=== PATIENT | male | born 1970 | race Hispanic/Latino ===

== ENCOUNTER 2018-07-09 12:20 | Inpatient (IN) ==
[2018-07-09] MEDS ORDERED: ASPIRIN 81 MG (BABY) CHEWABLE TABLET PO ONE (12:25)
[2018-07-09] MEDS ORDERED: Sodium Chloride 0.9% 1,000 ML PRIMARY IV ONE ×3 (12:25→22:35)
[2018-07-09] MEDS ORDERED: PANTOPRAZOLE IV 40 MG VIAL IVP ONE ×2 (12:25→15:39)
[2018-07-09] MEDS ORDERED: ONDANSETRON 4 MG/2 ML VIAL IVP ONE (12:25)
[2018-07-09] MEDS ORDERED: MORPHINE SULFATE 2 MG/1 ML IVP ONE (12:25)
--- NOTE | 2018-07-09 12:30 | EKG ---
[address] [address] Measurements Intervals [place] Rate: 113 P: 21 OR: 160 QRS: 18 QRSD: 106 T: 0 QT: 348 QTc: 415 Interpretive Statements SINUS TACHYCARDIA ABNORMAL RHYTHM ECG No previous ECG available for comparison Electronically Signed On 07-09-18 12:43:49 MST by Jonah Acevedo [id number]
--- NOTE | 2018-07-09 12:36 | PDOC ---
General Adult HPI - General Chief Complaint: Chest Pain Stated Complaint: LEFT CHEST/ABDOMEN PAIN STARTING TODAY Date Seen by Provider: 07/09/18 Time Seen by Provider: 12:20 Source: POSITIVE: Patient Exam Limitations: POSITIVE: No limitations Nurse's Notes Reviewed & Considered: Yes - History of Present Illness Initial Comment: The patient is a 44-year-old male who presents to the emergency department with left-sided chest and abdominal pain. He reports onset of pain in his left upper chest this morning. This pain is sharp and worsened with movement and taking deep breath. The pain now radiates through the left side of his chest through the left upper and mid abdomen. He has significant pain with movement. He also had an episode of emesis earlier this morning. He denies history of heart problems. He is unsure about history of high blood pressure or diabetes. He does not currently take any medications. The patient is primarily Czech speaking however does speak some Mauritanian limiting assessment. The patient does report drinking regularly and drank a sixpack last night. Have you received a tetanus shot in the past 10 years?: Unknown - Patient Home Medications Home Medications: Home Medications NK 07/09/18 - Patient Allergies Allergies/Adverse Reactions: Allergies 3 Allergy/AdvReac Type Severity Reaction Status Date / Time No Known Allergies Allergy Verified 07/09/18 12:26 Past Medical History Past Medical History Reviewed: Other (please comment) (Denies significant medical history and does not currently take any medications) ROS - Limitations ROS Limitations: Language Barrier Constitution: DENIES: Fever Cardiovascular: REPORTS: Chest Pain. DENIES: Edema Respiratory: REPORTS: Hurts To Breathe. DENIES: Cough Non Productive, Cough Productive Neurological: REPORTS: Denies Neuro Symptoms Gastrointestinal: REPORTS: Abdominal Pain, Nausea, Vomitting. DENIES: Diarrhea , Black Stools, Bloody Stools Musculoskeletal: DENIES: Lower Extremity Swelling Eyes: REPORTS: Denies Symptoms ENT: REPORTS: Denies Symptoms Skin: DENIES: Rash General Adult Exam - General Appearance General Appearance: POSITIVE: Alert, Cooperative, No Acute Distress - HEENT HEENT: POSITIVE: Head Inspection Nml, Eyes Inspection Nml, Ears Inspection Nml, Nose Inspection Nml, Pharynx Inspect. Nml - Neck Neck: POSITIVE: Normal Inspection. NEGATIVE: Lymphadenopathy - Respiratory Respiratory: POSITIVE: No Respiratory Distress, Breath Sounds Normal - Cardiovascular Cardiovascular: POSITIVE: Regular Rate & Rhythm, No Murmur Peripheral Pulses: Dorsalis-pedis (R): 2+, Dorsalis-pedis (L): 2+ - Abdomen Abdomen: Soft: (All Quadrants), Distention: (All Quadrants) - Skin Skin: POSITIVE: Normal Color, No Rash - Extremities Extremity: Normal ROM: (All Extremities), Normal Inspection: (All Extremities) - Neurological / Psychological Neurological: POSITIVE: Oriented X3, Motor Normal, Sensation Normal General Adult Progress - Results Reviewed by me Xrays/CTs/US Reviewed by me: Yes Discussed with Radiologist: Yes Radiology Findings: CTA of the chest shows no evidence of PE. CT of the abdomen and pelvis shows a 10 x 6 cm cyst in the tail the pancreas with a smaller 10 mm cyst in the head of the pancreas, there is some inflammatory change around the pancreas consistent with pancreatitis, there is also inflammatory change and/or fluid around the body of the stomach as well as small amount of fluid around the liver. Lab Results Reviewed by Me: Yes Lab Results:: Laboratory Results 3 07/09/18 07/09/18 07/09/18 12:25 12:25 12:26 WBC 16.53 H RBC 5.00 Hgb 16.9 Hct 49.6 MCV 99.2 H MCH 33.8 H MCHC 34.1 RDW Std Deviation 43.4 RDW Coeff of [place] 12.1 Plt Count 185 MPV 10.6 Immature Gran % (Auto) 0.2 Neut % (Auto) 82.1 H Lymph % (Auto) 10.6 [place] % (Auto) 6.8 Eos % (Auto) 0.1 Baso % (Auto) 0.2 Immature Gran # (Auto) 0.04 Neut # (Auto) 13.56 Lymph # (Auto) 1.76 [place] # (Auto) 1.13 H Eos # (Auto) 0.01 Baso # (Auto) 0.03 WBC Morphology Comment Normal morphology Plt Morphology Comment Normal morphology RBC Morph Comment Normal morphology D-Dimer 0.79 H VBG pH VBG pCO2 VBG HCO3 VBG Base Excess Sodium Potassium Chloride Carbon Dioxide Anion Gap BUN Creatinine Estimated GFR BUN/Creatinine Ratio Glucose Mean Blood Glucose Hemoglobin A1c Calculated Osmolality Lactic Acid Calcium Magnesium Total Bilirubin AST ALT Alkaline Phosphatase Lactate Dehydrogenase CK-MB (CK-2) Troponin I C-Reactive Protein Total Protein Albumin Globulin Albumin/Globulin Ratio Amylase Lipase Ur Collection Type Clean catch urine Urine Color Yellow Urine Clarity Clear Urine pH 5.0 Ur Specific [place] 1.025 U Specif Grav (Refrac) Urine Protein 30 A Urine Glucose (UA) 500 Urine Ketones >=160 Urine Occult Blood Negative Urine Nitrate Negative Urine Bilirubin Small Urine Urobilinogen 0.2 Ur Leukocyte Esterase Negative Urine RBC None Urine WBC None Ur Squamous Epith Cells Rare Ur Renal Epithelial Cell None Urine Crystals None Urine Bacteria None Urine Casts None Urine Mucus Rare Urine Trichomonas None Urine Yeast None Ur Culture Indicated? Culture not set Urine Opiates Screen Ur Buprenorphine Ur Oxycodone Screen Urine Methadone Screen Ur Propoxyphene Screen Barbiturate Screen U Tricyclic Antidepress Phencyclidine Screen Amphetamines Screen U Methamphetamines Scrn Benzodiazepines Screen Cocaine Screen U Marijuana (THC) Screen Serum Alcohol 3 07/09/18 07/09/18 07/09/18 12:30 12:30 12:30 WBC RBC Hgb Hct MCV MCH MCHC RDW Std Deviation RDW Coeff of [place] Plt Count MPV Immature Gran % (Auto) Neut % (Auto) Lymph % (Auto) [place] % (Auto) Eos % (Auto) Baso % (Auto) Immature Gran # (Auto) Neut # (Auto) Lymph # (Auto) [place] # (Auto) Eos # (Auto) Baso # (Auto) WBC Morphology Comment Plt Morphology Comment RBC Morph Comment D-Dimer VBG pH VBG pCO2 VBG HCO3 VBG Base Excess Sodium 136 Potassium 3.6 L Chloride 100 Carbon Dioxide 20 L Anion Gap 16 BUN 7 Creatinine 0.4 L Estimated GFR > 60 BUN/Creatinine Ratio 17.50 Glucose 263 H Mean Blood Glucose Hemoglobin A1c Calculated Osmolality 288.0 Lactic Acid Calcium 8.9 Magnesium 1.8 Total Bilirubin 1.8 H AST 37 ALT 43 Alkaline Phosphatase 129 H Lactate Dehydrogenase CK-MB (CK-2) 0.36 Troponin I < 0.012 C-Reactive Protein 5.2 H Total Protein 8.9 H Albumin 4.5 Globulin 4.4 H Albumin/Globulin Ratio 1.00 L Amylase 135 H Lipase 1091 H* Ur Collection Type Urine Color Urine Clarity Urine pH Ur Specific [place] U Specif Grav (Refrac) Urine Protein Urine Glucose (UA) Urine Ketones Urine Occult Blood Urine Nitrate Urine Bilirubin Urine Urobilinogen Ur Leukocyte Esterase Urine RBC Urine WBC Ur Squamous Epith Cells Ur Renal Epithelial Cell Urine Crystals Urine Bacteria Urine Casts Urine Mucus Urine Trichomonas Urine Yeast Ur Culture Indicated? Urine Opiates Screen Ur Buprenorphine Ur Oxycodone Screen Urine Methadone Screen Ur Propoxyphene Screen Barbiturate Screen U Tricyclic Antidepress Phencyclidine Screen Amphetamines Screen U Methamphetamines Scrn Benzodiazepines Screen Cocaine Screen U Marijuana (THC) Screen Serum Alcohol 11 H 3 07/09/18 07/09/18 07/09/18 12:54 13:00 13:00 WBC RBC Hgb Hct MCV MCH MCHC RDW Std Deviation RDW Coeff of [place] Plt Count MPV Immature Gran % (Auto) Neut % (Auto) Lymph % (Auto) [place] % (Auto) Eos % (Auto) Baso % (Auto) Immature Gran # (Auto) Neut # (Auto) Lymph # (Auto) [place] # (Auto) Eos # (Auto) Baso # (Auto) WBC Morphology Comment Plt Morphology Comment RBC Morph Comment D-Dimer VBG pH 7.40 VBG pCO2 26 L VBG HCO3 16 L VBG Base Excess -8 L Sodium Potassium Chloride Carbon Dioxide Anion Gap BUN Creatinine Estimated GFR BUN/Creatinine Ratio Glucose Mean Blood Glucose 283.963 Hemoglobin A1c 11.11 H Calculated Osmolality Lactic Acid Calcium Magnesium Total Bilirubin AST ALT Alkaline Phosphatase Lactate Dehydrogenase 448 CK-MB (CK-2) Troponin I C-Reactive Protein Total Protein Albumin Globulin Albumin/Globulin Ratio Amylase Lipase Ur Collection Type Urine Color Urine Clarity Urine pH Ur Specific [place] U Specif Grav (Refrac) Urine Protein Urine Glucose (UA) Urine Ketones Urine Occult Blood Urine Nitrate Urine Bilirubin Urine Urobilinogen Ur Leukocyte Esterase Urine RBC Urine WBC Ur Squamous Epith Cells Ur Renal Epithelial Cell Urine Crystals Urine Bacteria Urine Casts Urine Mucus Urine Trichomonas Urine Yeast Ur Culture Indicated? Urine Opiates Screen Ur Buprenorphine Ur Oxycodone Screen Urine Methadone Screen Ur Propoxyphene Screen Barbiturate Screen U Tricyclic Antidepress Phencyclidine Screen Amphetamines Screen U Methamphetamines Scrn Benzodiazepines Screen Cocaine Screen U Marijuana (THC) Screen Serum Alcohol 3 07/09/18 07/09/18 16:06 17:06 WBC RBC Hgb Hct MCV MCH MCHC RDW Std Deviation RDW Coeff of [place]o Plt Count MPV Immature Gran % (Auto) Neut % (Auto) Lymph % (Auto) [place] % (Auto) Eos % (Auto) Baso % (Auto) Immature Gran # (Auto) Neut # (Auto) Lymph # (Auto) [place] # (Auto) Eos # (Auto) Baso # (Auto) WBC Morphology Comment Plt Morphology Comment RBC Morph Comment D-Dimer VBG pH VBG pCO2 VBG HCO3 VBG Base Excess Sodium Potassium Chloride Carbon Dioxide Anion Gap BUN Creatinine Estimated GFR BUN/Creatinine Ratio Glucose Mean Blood Glucose Hemoglobin A1c Calculated Osmolality Lactic Acid 0.8 Calcium Magnesium Total Bilirubin AST ALT Alkaline Phosphatase Lactate Dehydrogenase CK-MB (CK-2) Troponin I C-Reactive Protein Total Protein Albumin Globulin Albumin/Globulin Ratio Amylase Lipase Ur Collection Type Clean catch urine Urine Color Urine Clarity Urine pH Ur Specific [place] U Specif Grav (Refrac) 1.025 Urine Protein Urine Glucose (UA) Urine Ketones Urine Occult Blood Urine Nitrate Urine Bilirubin Urine Urobilinogen Ur Leukocyte Esterase Urine RBC Urine WBC Ur Squamous Epith Cells Ur Renal Epithelial Cell Urine Crystals Urine Bacteria Urine Casts Urine Mucus Urine Trichomonas Urine Yeast Ur Culture Indicated? Urine Opiates Screen Positive H Ur Buprenorphine Negative Ur Oxycodone Screen Negative Urine Methadone Screen Negative Ur Propoxyphene Screen Negative Barbiturate Screen Negative U Tricyclic Antidepress Negative Phencyclidine Screen Negative Amphetamines Screen Negative U Methamphetamines Scrn Negative Benzodiazepines Screen Negative Cocaine Screen Negative U Marijuana (THC) Screen Negative Serum Alcohol CBC and BMP: 07/10/18 05:00 07/10/18 05:00 EKG Interpreted/Reviewed By Me:: Yes EKG Interpretation:: POSITIVE: Other (EKG shows sinus tachycardia with a rate of 113, no acute ST segment or T-wave changes.) - Patient's Progress MDM / ED Course: His initial EKG shows sinus tachycardia with a rate of 113, no acute ST segment or T-wave changes. The patient was given aspirin per chest pain protocol. He also appeared to be significantly uncomfortable and was given morphine and Zofran. Because of the left upper abdominal pain he was also given Protonix 40 mg IV. The patient had continued pain and his lipase was significantly elevated at 1000. He subsequent received Dilaudid 1 mg IV with significant pain relief. Chest x-ray showed hypoventilatory effort with possible atelectasis at the lung base and possible small right-sided pleural effusion. Blood work reveals an elevated white count of 16,000 with the CRP this elevated at 5. His lipase is 1000. D-dimer was also slightly elevated at 7.4. CT of the chest and CT scan of the abdomen and pelvis with IV contrast was ordered. The CT of the chest was negative for PE. CT the abdomen and pelvis shows inflammatory change around the pancreas as well as around the body of the stomach with a small amount of fluid around the liver, he also has a 10 x 6 cm cystic mass in the tail the pancreas as well as a 10 mm cyst in the head of the pancreas. The patient was discussed with Dr. Medina. He recommended likely referral to tertiary care for drainage and/or biopsy. The films were sent to the PACS system at [facility] and I did speak with the interventional radiologist there Dr. Cutler. He thought that the cyst most likely represented a pseudocyst and recommended that he be treated medically with consideration of drainage of the pseudocyst after maturity in 3-6 weeks. I subsequently had spoken with Dr. Polo. He recommended referral to a specialist in [place] Dr. Love. I did speak with Dr. Love and he also thought that this most likely represented a pseudocyst and recommended waiting 6 weeks for drainage and less the patient had clinical worsening. He thought it would be reasonable to treat the patient locally as a pancreatitis. If the patient improved he recommended outpatient follow-up. If the patient had worsening he recommended contacting their facility to discuss options. These findings and recommendations were discussed with the patient and he is in agreement with this plan. Dr. Garcia has agreed to admit the patient. - Consult Counseled: POSITIVE: Patient, RE: Lab Results, RE: Radiology Results, RE: DX, RE : Need for F/U Patient Care Time - Estimated PCT Patient Care Time (In Minutes): 55 Vital Signs - VS Reviewed Vital Signs Reviewed: Yes Discharge Clinical Impression: Hypokalemia, Cystic mass of pancreas Acute pancreatitis Qualifiers: Pancreatitis type: alcohol induced Acute pancreatitis complication: no infection or necrosis Qualified Code(s): K85.20 - Alcohol induced acute pancreatitis without necrosis or infection Discharge Disposition: Admit to Inpatient Condition: Fair Date Decision to Admit to Inpatient: 07/10/18 Time Decision to Admit to Inpatient: 17:30
[2018-07-09 12:40] LABS: BASOPHILS # (AUTO) 0.03 10*3/UL; BASOPHILS % (AUTO) 0.2 % (0-1); EOSINOPHILS # (AUTO) 0.01 10*3/UL; EOSINOPHILS % (AUTO) 0.1 % (0-8); Hematocrit [HCT] 49.6 % (42.0-52.0); Hemoglobin [HGB] 16.9 g/dL (14.0-18.0); LYMPHOCYTES # (AUTO) 1.76 10*3/uL; MEAN CORPUSCULAR HEMOGLOBIN 33.8 PG (27-31); MEAN CORPUSCULAR HGB CONC 34.1 g/dL (33-37); MEAN CORPUSCULAR VOLUME 99.2 FL (80-90); MEAN PLATELET VOLUME 10.6 FL (7.4-12.2); MONOCYTES # (AUTO) 1.13 10*3/UL (0.3-0.8); MONOCYTES % (AUTO) 6.8 % (5-15); NEUTROPHILS # (AUTO) 13.56 10*3/UL; NEUTROPHILS % (AUTO) 82.1 % (50-80)
[2018-07-09 12:54] LABS: BLOOD UREA NITROGEN 7 mg/dL (7-22); SERUM ALBUMIN 4.5 g/dL (3.5-4.8)
[2018-07-09 12:56] LABS: PLATELET MORPHOLOGY COMMENT NORMAL MORPHOLOGY (NORM); RBC MORPHOLOGY COMMENT NORMAL MORPHOLOGY (NORM); WBC MORPHOLOGY COMMENT NORMAL MORPHOLOGY (NORM)
[2018-07-09] MEDS ORDERED: HYDROmorphone 2 MG/1 ML IVP ONE (12:59)
[2018-07-09 13:04] LABS: LIPASE 1091 IU/L (23-300)
--- NOTE | 2018-07-09 13:37 | DI ---
EXAM: XR Chest, 1 View CLINICAL HISTORY: ITS.REASON Chest Pain Physician Notes: Tech Comments: TECHNIQUE: Frontal view of the chest. COMPARISON: No relevant prior studies available. FINDINGS: Lungs: Hypoventilatory lungs. Bibasilar lung atelectasis. Pleural space: Query Tiny right pleural effusion. No pneumothorax. Heart: Unremarkable. No cardiomegaly. Mediastinum: Unremarkable. Bones/joints: Unremarkable. IMPRESSION: Hypoventilatory lungs. Bibasilar lung atelectasis. Query Tiny right pleural effusion.
[2018-07-09 14:38] LABS: VENOUS PH 7.4 (7.32-7.42)
--- NOTE | 2018-07-09 15:27 | DI ---
EXAM: CT Angiography Chest With Intravenous Contrast CLINICAL HISTORY: ITS.REASON chest pain, elevated d-dimer Physician Notes: Tech Comments: TECHNIQUE: Axial computed tomographic angiography images of the chest with intravenous contrast using pulmonary embolism protocol. MIP reconstructed images were created and reviewed. Coronal and sagittal reformatted images were created and reviewed. COMPARISON: No relevant prior studies available. FINDINGS: Pulmonary arteries: No pulmonary embolism. Aorta: No acute findings. No thoracic aortic aneurysm. Lungs: Mild right middle lobe, lingular and bibasilar lung atelectasis/streaky opacities. Pleural space: Unremarkable. No significant effusion. No pneumothorax. Heart: Unremarkable. No cardiomegaly. No significant pericardial effusion. No evidence of RV dysfunction. Mediastinum: Small hiatal hernia. Bones/joints: Degenerative changes of the spine. No acute fracture. No dislocation. Soft tissues: Unremarkable. Lymph nodes: Unremarkable. No enlarged lymph nodes. Intraperitoneal space: Small ascites in the upper abdomen. Marked thickening of the gastric fundus. Stranding edema in the left upper abdomen. 5 cm cystic mass in the left upper abdomen, not fully imaged. IMPRESSION: 1. No pulmonary embolism. 2. Mild right middle lobe, lingular and bibasilar lung atelectasis/streaky opacities. 3. Small ascites in the upper abdomen. Marked thickening of the gastric fundus. Stranding edema in the left upper abdomen. 5 cm cystic mass in the left upper abdomen, not fully imaged.
--- NOTE | 2018-07-09 15:33 | EKG ---
Measurements Intervals [place] Rate: 119 P: 33 CO: 157 QRS: 14 QRSD: 102 T: 22 QT: 351 QTc: 422 Interpretive Statements SINUS TACHYCARDIA NONSPECIFIC T-WAVE ABNORMALITY ABNORMAL RHYTHM ECG Compared to ECG 07/09/2018 12:25:53 T-wave abnormality now present Electronically Signed On 07-10-18 08:20:54 MST by Kartik Larios MD [id number]
--- NOTE | 2018-07-09 15:35 | DI ---
EXAM: CT Abdomen and Pelvis With Intravenous Contrast CLINICAL HISTORY: ITS.REASON left sided abdominal pain Physician Notes: Tech Comments: TECHNIQUE: Axial computed tomography images of the abdomen and pelvis with intravenous contrast. COMPARISON: No relevant prior studies available. FINDINGS: Lung bases: Streaky opacities bilateral lower lobe. No mass. No consolidation. ABDOMEN: Liver: Unremarkable. No mass. Gallbladder and bile ducts: Distended gallbladder. No calcified stones. No ductal dilation. Pancreas: 6.0 x 10.4 x 7.1 cm cystic mass with rim enhancing wall at the pancreatic body and tail, likely pseudocyst. Cannot exclude neoplasm. Surrounding inflammatory changes. Follow-up. Heterogeneous pancreatic head and neck. 10 mm pancreatic head cystic lesion. No ductal dilation. Spleen: Unremarkable. No splenomegaly. Adrenals: Unremarkable. No mass. Kidneys and ureters: Unremarkable. No solid mass. No hydronephrosis. Stomach and bowel: Inflammatory changes left upper abdomen. Thickening at the splenic flexure of the colon likely reactive. Fluid or thickening at the gastric fundus. Colonic diverticulosis. No obstruction. PELVIS: Appendix: Normal appendix. Bladder: Unremarkable. No mass. Reproductive: Unremarkable as visualized. ABDOMEN and PELVIS: Intraperitoneal space: Free fluid upper abdomen and in the pelvis. No free air. Low Bones/joints: Degenerative changes of the spine. No acute fracture. No dislocation. Soft tissues: Small umbilical hernia containing ascites. Small bilateral fat-containing inguinal hernias. Vasculature: Varices. No abdominal aortic aneurysm. Lymph nodes: Unremarkable. No enlarged lymph nodes. IMPRESSION: 1. 6.0 x 10.4 x 7.1 cm cystic mass with rim enhancing wall at the pancreatic body and tail, likely pseudocyst, possibly infection/abscess. Cannot exclude neoplasm. Surrounding inflammatory changes, probably acute pancreatitis. 10 mm cystic lesion pancreatic head. Follow-up. 2. Inflammatory changes left upper abdomen. Thickening at the splenic flexure of the colon likely reactive. Fluid or thickening at the gastric fundus. 3. Distended gallbladder. 4. Colonic diverticulosis.
[2018-07-09 17:20] LABS: BILIRUBIN,URINE SMALL (NEG); CLARITY,URINE CLEAR (CLEAR); COLOR,URINE YELLOW (Y); GLUCOSE, URINE (UA) 500 mg/dL (NEG); OCCULT BLOOD,URINE NEGATIVE (NEG); PROTEIN,URINE 30 mg/dl (NEG); UROBILINOGEN,URINE 0.2 EU/dL (0.2)
[2018-07-09 17:22] LABS: SQUAMOUS EPITHELIAL CELL,UR RARE; URINE SAMPLE TYPE CLEAN CATCH URINE
[2018-07-09 17:23] LABS: AMPHETAMINE SCREEN NEGATIVE (NEG); CANNABINOID SCREEN,URINE NEGATIVE (NEG); COCAINE SCREEN NEGATIVE (NEG); METHADONE URINE SCREEN NEGATIVE (NEG); METHAMPHETAMINES SCREEN,URINE NEGATIVE (NEG); OPIATE SCREEN,URINE POSITIVE (NEG); URINE SAMPLE TYPE CLEAN CATCH URINE; URINE SPECIFIC GRAVITY - MAN 1.025
[2018-07-09] MEDS ORDERED: CALCIUM CARBONATE 500 MG (TUMS) CHEWABLE TABLET PO PRN (17:32)
[2018-07-09] MEDS ORDERED: ONDANSETRON 4 MG/2 ML VIAL IVP PRN (17:32)
[2018-07-09] MEDS ORDERED: D5-1/2NS + 20mEq KCL 1,000 ML PRIMARY IV SCH (17:32)
[2018-07-09] MEDS ORDERED: ACETAMINOPHEN 325 MG TABLET PO PRN (17:32)
[2018-07-09] MEDS ORDERED: LIDOCAINE W/ SODIUM BICARB 0.5 ML SYR SUBD PRN (17:32)
[2018-07-09] MEDS ORDERED: DOCUSATE 100 MG CAPSULE PO PRN (17:32)
[2018-07-09] MEDS: HYDROmorphone 2 MG/1 ML IVP PRN (17:54)
--- NOTE | 2018-07-09 18:17 | PDOC ---
HPI - History of Present Illness Date of Service: 07/09/18 Time of Service: 18:05 Chief Complaint: abdominal pain History of Present Illness: This is a 48 year old predominantly uruguayan speaking male with no prior past medical history that presents with sudden onset of epigastric pain that started today. The patient admits to drinking 6 bears per day on most days. No fever and no diarrhea. Did have nausea and vomiting. Pain medication in the emergency room did help a little. Nausea medicine helped some too. Has never had pancreatitis before. He has had alcohol withdrawal in the past but has never been hospitalized for this in the past. CT scan shows pancreatitis with a pseudocyst and a cystic mass in the pancreas. The patient states he has lost weight. He has not had any surgeries and still has his gallbladder. Past Medical History Medical History: 1. alcohol abuse Surgical History: no prior surgeries Pertinent Family History: Significant for diabetes in his father Past Social History: does not smoke, does drink 6 beers a day. works all over in the [employer] not . no children. Tobacco Use: Never Smoker In the Past 12 Months, Have Used or Abuse Any of the Following Substance: None Alcohol Use: Heavy Medication / Allergies Home Medications: Home Medications 3 Medication Instructions Recorded Confirmed Type NK 07/09/18 07/09/18 History Allergies/Adverse Reactions: Allergies 3 Allergy/AdvReac Type Severity Reaction Status Date / Time No Known Allergies Allergy Verified 07/09/18 12:26 Review of Systems - Review of Systems All Systems: Reviewed & No Additional Complaints Except as Stated (I did a 12 point review of systems and it was negative except for that in history of present illness and exceptions noted below.) - Constitutional Constitutional: REPORTS: Weight Loss - Respiratory Respiratory: REPORTS: Pleuritic Pain (along left side) - Gastrointestinal Gastrointestinal / Abdominal: REPORTS: Nausea, Vomiting, Abdominal Pain Exam - Vitals Vital Signs: Vital Signs Temperature 98.6 F Temperature Source Temporal Artery Scan Pulse Rate [Telemetry] 119 Pulse Rate 129 Respiratory Rate 22 Blood Pressure [Right Arm] 146/96 Blood Pressure 141/96 Pulse Ox 95 Oxygen Flow Rate 2 Oxygen Delivery Method Nasal Cannula Height 5 ft 9 in Weight 172 lb 1.6 oz - General General Appearance: No Acute Distress, Cooperative Additional General Exam Details: not toxic, appears ill - Head Head Exam: Normal Inspection, Normocephalic, Atraumatic - Eye Eye Exam: POSITIVE: No Scleral Icterus - ENT ENT Exam: POSITIVE: Mucous Membranes Dry - Neck Neck Exam: Normal Inspection, No Tenderness, No Lymphadenopathy, No Thyromegaly , JVP is not Raised - Respiratory Respiratory Exam: POSITIVE: Clear to Auscultation - Bilaterally, Breathing Non Labored, Normal to Percussion and Palpation - Cardiovascular Cardiovascular Exam: POSITIVE: No Murmur, No Clicks, No Gallops, No Rubs, Tachycardia, No JVD - GI/Abdominal GI/Abdominal Exam: POSITIVE: Normal Bowel Sounds, Non Distended, Soft Additional GI/Abdominal Exam Details: epigastric tenderness to palpation. - Rectal Rectal Exam: POSITIVE: Deferred - External Exam: POSITIVE: Deferred Exam: POSITIVE: Deferred - Extremities Extremities Exam: POSITIVE: No Clubbing Present, No Edema Present, No Cyanosis Present - Back Back Exam: POSITIVE: No CVA Tenderness - Neurological Neurological Exam: POSITIVE: Alert, Oriented x 3, No Facial Droop, Speech Intact / Clear, Moves All Extremities Equally - Psychiatric Psychiatric Exam: POSITIVE: Normal Affect, Normal Mood Results - Labs CBC and BMP: 07/09/18 12:25 07/09/18 12:30 Additional Lab Results: Laboratory Results 07/09/18 07/09/18 07/09/18 Range/Units 12:25 12:25 12:26 WBC 16.53 H (4.8-10.8) 10^3/uL RBC 5.00 (4.70-6.10) 10^6/uL Hgb 16.9 (14.0-18.0) g/dL Hct 49.6 (42.0-52.0) % MCV 99.2 H (80-90) FL MCH 33.8 H (27-31) PG MCHC 34.1 (33-37) g/dL RDW Std Deviation 43.4 (39-50) fL RDW Coeff of Haroldo 12.1 (11.5-14.5) % Plt Count 185 (140-350) 10*3/uL MPV 10.6 (7.4-12.2) FL Immature Gran % (Auto) 0.2 (0-5) % Neut % (Auto) 82.1 H (50-80) % Lymph % (Auto) 10.6 (10-50) % [place] % (Auto) 6.8 (5-15) % Eos % (Auto) 0.1 (0-8) % Baso % (Auto) 0.2 (0-1) % Immature Gran # (Auto) 0.04 10*3/UL Neut # (Auto) 13.56 10*3/UL Lymph # (Auto) 1.76 10*3/uL [place] # (Auto) 1.13 H (0.3-0.8) 10*3/UL Eos # (Auto) 0.01 10*3/UL Baso # (Auto) 0.03 10*3/UL WBC Morphology Comment Normal morphology (NORM) Plt Morphology Comment Normal morphology (NORM) RBC Morph Comment Normal morphology (NORM) D-Dimer 0.79 H (0.00-0.59) mg/L VBG pH (7.32-7.42) VBG pCO2 (45-55) mmHg VBG HCO3 (22-26) mmol/L VBG Base Excess (-2-2) MMOL/L Sodium (135-145) meq/L Potassium (3.8-5.2) meq/L Chloride (98-112) meq/L Carbon Dioxide (23-33) meq/L Anion Gap (5-20) BUN (7-22) mg/dL Creatinine (0.70-1.50) mg/dL Estimated GFR (>60 ml/min/1.73m(2)) BUN/Creatinine Ratio (6-20) Glucose (78-110) mg/dL Calculated Osmolality (267-292) mOsm/kg Lactic Acid (0.70-2.10) MMOL/L Calcium (8.7-10.7) mg/dL Magnesium (1.6-2.4) mg/dL Total Bilirubin (0.3-1.2) mg/dL AST (21-57) IU/L ALT (21-72) IU/L Alkaline Phosphatase (38-126) IU/L CK-MB (CK-2) (0.00-5.00) NG/ML Troponin I (< 0.040) ng/mL C-Reactive Protein (0.0-0.9) mg/dL Total Protein (6.1-8.0) g/dL Albumin (3.5-4.8) g/dL Globulin (2.50-4.10) g/dL Albumin/Globulin Ratio (1.3-2.0) mg/g Amylase (30-110) U/L Lipase (23-300) IU/L Ur Collection Type Clean catch urine Urine Color Yellow (Y) Urine Clarity Clear (CLEAR) Urine pH 5.0 (5.0-8.5) Ur Specific [place] 1.025 (1.005-1.030) U Specif Grav (Refrac) Urine Protein 30 A (NEG) mg/dl Urine Glucose (UA) 500 (NEG) mg/dL Urine Ketones >=160 (NEG) Urine Occult Blood Negative (NEG) Urine Nitrate Negative (NEG) Urine Bilirubin Small (NEG) Urine Urobilinogen 0.2 (0.2) EU/dL Ur Leukocyte Esterase Negative (NEG) Urine RBC None (NONE) /hpf Urine WBC None (NONE) Ur Squamous Epith Cells Rare (NONE) Ur Renal Epithelial Cell None (NONE) Urine Crystals None Urine Bacteria None (NONE) Urine Casts None (NONE) Urine Mucus Rare (NONE) Urine Trichomonas None (NONE) Urine Yeast None (NONE) Ur Culture Indicated? Culture not set Urine Opiates Screen (NEG) Ur Buprenorphine (NEG) Ur Oxycodone Screen (NEG) Urine Methadone Screen (NEG) Ur Propoxyphene Screen (NEG) Barbiturate Screen (NEG) U Tricyclic Antidepress (NEG) Phencyclidine Screen (NEG) Amphetamines Screen (NEG) U Methamphetamines Scrn (NEG) Benzodiazepines Screen (NEG) Cocaine Screen (NEG) U Marijuana (THC) Screen (NEG) Serum Alcohol (0-10) mg/dL 07/09/18 07/09/18 07/09/18 Range/Units 12:30 12:30 12:30 WBC (4.8-10.8) 10^3/uL RBC (4.70-6.10) 10^6/uL Hgb (14.0-18.0) g/dL Hct (42.0-52.0) % MCV (80-90) FL MCH (27-31) PG MCHC (33-37) g/dL RDW Std Deviation (39-50) fL RDW Coeff of Haroldo (11.5-14.5) % Plt Count (140-350) 10*3/uL MPV (7.4-12.2) FL Immature Gran % (Auto) (0-5) % Neut % (Auto) (50-80) % Lymph % (Auto) (10-50) % [place] % (Auto) (5-15) % Eos % (Auto) (0-8) % Baso % (Auto) (0-1) % Immature Gran # (Auto) 10*3/UL Neut # (Auto) 10*3/UL Lymph # (Auto) 10*3/uL [place] # (Auto) (0.3-0.8) 10*3/UL Eos # (Auto) 10*3/UL Baso # (Auto) 10*3/UL WBC Morphology Comment (NORM) Plt Morphology Comment (NORM) RBC Morph Comment (NORM) D-Dimer (0.00-0.59) mg/L VBG pH (7.32-7.42) VBG pCO2 (45-55) mmHg VBG HCO3 (22-26) mmol/L VBG Base Excess (-2-2) MMOL/L Sodium 136 (135-145) meq/L Potassium 3.6 L (3.8-5.2) meq/L Chloride 100 (98-112) meq/L Carbon Dioxide 20 L (23-33) meq/L Anion Gap 16 (5-20) BUN 7 (7-22) mg/dL Creatinine 0.4 L (0.70-1.50) mg/dL Estimated GFR > 60 (>60 ml/min/1.73m(2)) BUN/Creatinine Ratio 17.50 (6-20) Glucose 263 H (78-110) mg/dL Calculated Osmolality 288.0 (267-292) mOsm/kg Lactic Acid (0.70-2.10) MMOL/L Calcium 8.9 (8.7-10.7) mg/dL Magnesium 1.8 (1.6-2.4) mg/dL Total Bilirubin 1.8 H (0.3-1.2) mg/dL AST 37 (21-57) IU/L ALT 43 (21-72) IU/L Alkaline Phosphatase 129 H (38-126) IU/L CK-MB (CK-2) 0.36 (0.00-5.00) NG/ML Troponin I < 0.012 (< 0.040) ng/mL C-Reactive Protein 5.2 H (0.0-0.9) mg/dL Total Protein 8.9 H (6.1-8.0) g/dL Albumin 4.5 (3.5-4.8) g/dL Globulin 4.4 H (2.50-4.10) g/dL Albumin/Globulin Ratio 1.00 L (1.3-2.0) mg/g Amylase 135 H (30-110) U/L Lipase 1091 H* (23-300) IU/L Ur Collection Type Urine Color (Y) Urine Clarity (CLEAR) Urine pH (5.0-8.5) Ur Specific [place] (1.005-1.030) U Specif Grav (Refrac) Urine Protein (NEG) mg/dl Urine Glucose (UA) (NEG) mg/dL Urine Ketones (NEG) Urine Occult Blood (NEG) Urine Nitrate (NEG) Urine Bilirubin (NEG) Urine Urobilinogen (0.2) EU/dL Ur Leukocyte Esterase (NEG) Urine RBC (NONE) /hpf Urine WBC (NONE) Ur Squamous Epith Cells (NONE) Ur Renal Epithelial Cell (NONE) Urine Crystals Urine Bacteria (NONE) Urine Casts (NONE) Urine Mucus (NONE) Urine Trichomonas (NONE) Urine Yeast (NONE) Ur Culture Indicated? Urine Opiates Screen (NEG) Ur Buprenorphine (NEG) Ur Oxycodone Screen (NEG) Urine Methadone Screen (NEG) Ur Propoxyphene Screen (NEG) Barbiturate Screen (NEG) U Tricyclic Antidepress (NEG) Phencyclidine Screen (NEG) Amphetamines Screen (NEG) U Methamphetamines Scrn (NEG) Benzodiazepines Screen (NEG) Cocaine Screen (NEG) U Marijuana (THC) Screen (NEG) Serum Alcohol 11 H (0-10) mg/dL 07/09/18 07/09/18 07/09/18 Range/Units 12:54 16:06 17:06 WBC (4.8-10.8) 10^3/uL RBC (4.70-6.10) 10^6/uL Hgb (14.0-18.0) g/dL Hct (42.0-52.0) % MCV (80-90) FL MCH (27-31) PG MCHC (33-37) g/dL RDW Std Deviation (39-50) fL RDW Coeff of Haroldo (11.5-14.5) % Plt Count (140-350) 10*3/uL MPV (7.4-12.2) FL Immature Gran % (Auto) (0-5) % Neut % (Auto) (50-80) % Lymph % (Auto) (10-50) % [place] % (Auto) (5-15) % Eos % (Auto) (0-8) % Baso % (Auto) (0-1) % Immature Gran # (Auto) 10*3/UL Neut # (Auto) 10*3/UL Lymph # (Auto) 10*3/uL [place] # (Auto) (0.3-0.8) 10*3/UL Eos # (Auto) 10*3/UL Baso # (Auto) 10*3/UL WBC Morphology Comment (NORM) Plt Morphology Comment (NORM) RBC Morph Comment (NORM) D-Dimer (0.00-0.59) mg/L VBG pH 7.40 (7.32-7.42) VBG pCO2 26 L (45-55) mmHg VBG HCO3 16 L (22-26) mmol/L VBG Base Excess -8 L (-2-2) MMOL/L Sodium (135-145) meq/L Potassium (3.8-5.2) meq/L Chloride (98-112) meq/L Carbon Dioxide (23-33) meq/L Anion Gap (5-20) BUN (7-22) mg/dL Creatinine (0.70-1.50) mg/dL Estimated GFR (>60 ml/min/1.73m(2)) BUN/Creatinine Ratio (6-20) Glucose (78-110) mg/dL Calculated Osmolality (267-292) mOsm/kg Lactic Acid 0.8 (0.70-2.10) MMOL/L Calcium (8.7-10.7) mg/dL Magnesium (1.6-2.4) mg/dL Total Bilirubin (0.3-1.2) mg/dL AST (21-57) IU/L ALT (21-72) IU/L Alkaline Phosphatase (38-126) IU/L CK-MB (CK-2) (0.00-5.00) NG/ML Troponin I (< 0.040) ng/mL C-Reactive Protein (0.0-0.9) mg/dL Total Protein (6.1-8.0) g/dL Albumin (3.5-4.8) g/dL Globulin (2.50-4.10) g/dL Albumin/Globulin Ratio (1.3-2.0) mg/g Amylase (30-110) U/L Lipase (23-300) IU/L Ur Collection Type Clean catch urine Urine Color (Y) Urine Clarity (CLEAR) Urine pH (5.0-8.5) Ur Specific [place] (1.005-1.030) U Specif Grav (Refrac) 1.025 Urine Protein (NEG) mg/dl Urine Glucose (UA) (NEG) mg/dL Urine Ketones (NEG) Urine Occult Blood (NEG) Urine Nitrate (NEG) Urine Bilirubin (NEG) Urine Urobilinogen (0.2) EU/dL Ur Leukocyte Esterase (NEG) Urine RBC (NONE) /hpf Urine WBC (NONE) Ur Squamous Epith Cells (NONE) Ur Renal Epithelial Cell (NONE) Urine Crystals Urine Bacteria (NONE) Urine Casts (NONE) Urine Mucus (NONE) Urine Trichomonas (NONE) Urine Yeast (NONE) Ur Culture Indicated? Urine Opiates Screen Positive H (NEG) Ur Buprenorphine Negative (NEG) Ur Oxycodone Screen Negative (NEG) Urine Methadone Screen Negative (NEG) Ur Propoxyphene Screen Negative (NEG) Barbiturate Screen Negative (NEG) U Tricyclic Antidepress Negative (NEG) Phencyclidine Screen Negative (NEG) Amphetamines Screen Negative (NEG) U Methamphetamines Scrn Negative (NEG) Benzodiazepines Screen Negative (NEG) Cocaine Screen Negative (NEG) U Marijuana (THC) Screen Negative (NEG) Serum Alcohol (0-10) mg/dL - Imaging Status: Image Reviewed by Me (I looked at the chest CT scan and it was negative for any acute pneumonia. Chest x-ray shows low lung volumes. CT of the abdomen and pelvis shows a large pseudocyst. Findings as per radiology as well. Those were reviewed.) Assessment and Plan - Patient Problems (1) Acute pancreatitis Current Visit: Yes Status: Acute Code(s): K85.90 - Acute pancreatitis without necrosis or infection, unspecified Qualifiers: Pancreatitis type: alcohol induced Acute pancreatitis complication: no infection or necrosis Qualified Code(s): K85.20 - Alcohol induced acute pancreatitis without necrosis or infection (2) Cystic mass of pancreas Current Visit: Yes Status: Acute Code(s): K86.2 - Cyst of pancreas (3) Alcohol abuse Current Visit: Yes Status: Acute Code(s): F10.10 - Alcohol abuse, uncomplicated (4) Hypokalemia Current Visit: Yes Status: Acute Code(s): E87.6 - Hypokalemia - Assessment / Plan Additional Assessment/Plan Details: admit the patient IV narcotics and antiemetics, start [employer]. Reviewing how frequently he got pain medications in the emergency room, I think it would be better for the patient to be able to push the button himself as language barrier could prevent him from getting good pain relief. NPO, and check lipase in a.m. do studies to make sure gall bladder is not the cause, although I think this is alcohol related check IgE level check lipase in AM check lipids I'm very concerned as patient has an elevated white blood cell count, pseudocyst , and a cystic mass in the pancreatic head. He very well could have underlying pancreatic cancer. However, given the inflammation with this acute pancreatitis and a pseudocyst present, we may need to wait for the inflammation calmed down prior to any biopsies or further workup. He will definitely need reimaging with CT scan in the next 6-8 weeks. Likely will end up needing biopsy of the cystic mass if it still present in 6-8 weeks. He may need even to be imaged and biopsied sooner. I will discuss with either GI tomorrow or surgery. Given his alcohol use, start CIWA protocol with Ativan as necessary. IV fluids and potassium replacement. He is likely diabetic I will get a hemoglobin A1c. We'll start insulin and blood sugar checks if that is the case. I had no filling hauler weaving available so I used [employer] temi on my phone to get this history. The patient stated he understood the issues and he agreed with the therapy plan.
[2018-07-09] MEDS ORDERED: NALOXONE 0.4 MG/1 ML VIAL IVP PRN (18:23)
[2018-07-09] MEDS ORDERED: Keys-Hydromorphone PCA PRN (18:23)
[2018-07-09] MEDS ORDERED: HYDROmorphone/PF/PCA 9 MG/30 ML IV SCH (18:30)
[2018-07-09] MEDS ORDERED: Insulin Sliding Scale Protocol SUBCUT PRN (18:54)
[2018-07-09] MEDS ORDERED: DEXTROSE 50%-WATER SYRINGE 50 ML SYRINGE IVP PRN (18:54)
[2018-07-09] MEDS ORDERED: Glucagon Inj Vial 1 MG/ML VIAL IM PRN (18:54)
[2018-07-09] MEDS ORDERED: DEXTROSE 31 GM GEL PO PRN (18:54)
[2018-07-09] MEDS: Sodium Chloride 0.9% 1,000 ML PRIMARY IV SCH (18:59)
[2018-07-09] MEDS: LORazepam Inj(ETOH withdrawal) 2 MG/ML VIAL IVP PRN ×3 (19:22→23:35)
[2018-07-09 20:11] LABS: HEMOGLOBIN A1C 11.11 % (4.2-6.0)
[2018-07-09] MEDS: Insulin Lispro Flexpen 300 UNIT/3 ML INSULN.PEN SUBCUT SCH (21:21)
[2018-07-10] MEDS: LORazepam Inj(ETOH withdrawal) 2 MG/ML VIAL IVP PRN ×2 (05:09→07:50)
[2018-07-10 05:16] LABS: BASOPHILS # (AUTO) 0.02 10*3/UL; BASOPHILS % (AUTO) 0.2 % (0-1); EOSINOPHILS # (AUTO) 0.02 10*3/UL; EOSINOPHILS % (AUTO) 0.2 % (0-8); Hematocrit [HCT] 46.5 % (42.0-52.0); Hemoglobin [HGB] 15.2 g/dL (14.0-18.0); LYMPHOCYTES # (AUTO) 1.41 10*3/uL; MEAN CORPUSCULAR HEMOGLOBIN 33.3 PG (27-31); MEAN CORPUSCULAR HGB CONC 32.7 g/dL (33-37); MEAN PLATELET VOLUME 10.6 FL (7.4-12.2); MONOCYTES # (AUTO) 1.35 10*3/UL (0.3-0.8); MONOCYTES % (AUTO) 10.4 % (5-15); NEUTROPHILS # (AUTO) 10.11 10*3/UL; NEUTROPHILS % (AUTO) 78.1 % (50-80); RED BLOOD COUNT 4.56 10^6/uL (4.70-6.10)
[2018-07-10 05:27] LABS: PLATELET MORPHOLOGY COMMENT NORMAL MORPHOLOGY (NORM); RBC MORPHOLOGY COMMENT NORMAL MORPHOLOGY (NORM); WBC MORPHOLOGY COMMENT NORMAL MORPHOLOGY (NORM)
[2018-07-10 05:46] LABS: BLOOD UREA NITROGEN 9 mg/dL (7-22); CHOL/HDL RATIO 3.08 RATIO (0-4.0); LIPASE 610 IU/L (23-300); SERUM ALBUMIN 3.1 g/dL (3.5-4.8); SERUM CHOLESTEROL 111 mg/dL (120-200)
[2018-07-10] MEDS: Insulin Lispro Flexpen 300 UNIT/3 ML INSULN.PEN SUBCUT SCH ×4 (07:07→21:08)
[2018-07-10] MEDS: Sodium Chloride 0.9% 1,000 ML PRIMARY IV SCH ×2 (07:50→16:37)
[2018-07-10] MEDS: PANTOPRAZOLE IV 40 MG VIAL IVP SCH (08:02)
[2018-07-10] MEDS ORDERED: Magnesium Sulfate 2gm (Premix) 2 GM/50 ML BAG IV ONE (08:12)
--- NOTE | 2018-07-10 10:17 | DI ---
US Abdomen Complete,07/10/2018 7:00 AM: Clinical History: Pancreatic mass. Previous Exam: None at this facility. Findings: Multiple transabdominal grayscale and color Doppler sonographic images are obtained through the abdom en, and demonstrates some mild thickening of the gallbladder wall although a true transverse image ap pears to be less than 3 mm in thickness. There is no cystic mass. There is no pericholecystic fluid. Liver is unremarkable. There is what appears to be cystic mass within the pancreatic tail measuring 1 0.3 x 4.6 x 7.6 cm. Impression: 1. Large cystic mass within the tail of the pancreas measuring 10.3 x 4.6 x 7.6 cm. Surgical resectio n is most likely the management of choice taking into account patient's comorbidities.
--- NOTE | 2018-07-10 11:48 | PDOC(PROG) ---
Date of Service: 07/10/18 Time of Service: 11:38 Interval History: No chest pain, not short of breath, but some pleuritic pain persists, still has abdominal pain but better. Patient was not aware he had diabetes. No nausea or vomiting. Objective : Data - Labs CBC and BMP: 07/10/18 05:00 07/10/18 05:00 Additional Lab Results: 07/10/18 07/10/18 05:00 05:00 Total Bilirubin 1.7 H AST 22 ALT 34 Alkaline Phosphatase 76 Total Protein 6.6 Albumin 3.1 L Globulin 3.5 Albumin/Globulin Ratio 0.80 L Triglycerides 55 Cholesterol 111 L LDL Cholesterol, Calc 64.000 VLDL Cholesterol 11 HDL Cholesterol 36 L Lipase 610 H Vitamin B12 887 Serum Folate 8.13 - Imaging Ultrasound Status: Report Reviewed by Me (cystic mass noted on ultrasound, probably no cholecystitis) Objective : Exam - General General Appearance: No Acute Distress, Cooperative Additional General Exam Details: Vital Signs - Last Taken Temperature 97.1 F 07/10/18 11:09 Pulse Rate 111 H 07/10/18 11:09 Respiratory Rate 21 07/10/18 11:09 Blood Pressure 114/76 07/10/18 11:09 Pulse Ox 94 07/10/18 11:09 - Eye Eye Exam: No Scleral Icterus - ENT ENT Exam: Mucous Membranes Dry - Respiratory Respiratory Exam: Clear to Auscultation - Bilaterally, Decreased Breath Sounds ( in the bases bilaterally) - Cardiovascular Cardiovascular Exam: No Murmur, No Clicks, No Gallops, No Rubs, Tachycardia, No JVD - GI/Abdominal GI/Abdominal Exam: Normal Bowel Sounds, Non Distended, Soft Additional GI/Abdominal Exam Details: tenderness, but better - Extremities Extremities Exam: No Clubbing Present, No Edema Present, No Cyanosis Present - Neurological Neurological Exam: Alert, Oriented x 3, No Facial Droop, Speech Intact / Clear, Moves All Extremities Equally Assessment and Plan - Patient Problems (1) Acute pancreatitis Current Visit: Yes Status: Acute Code(s): K85.90 - Acute pancreatitis without necrosis or infection, unspecified Qualifiers: Pancreatitis type: alcohol induced Acute pancreatitis complication: no infection or necrosis Qualified Code(s): K85.20 - Alcohol induced acute pancreatitis without necrosis or infection (2) DMII (diabetes mellitus, type 2) Current Visit: Yes Status: Acute Code(s): E11.9 - Type 2 diabetes mellitus without complications Qualifiers: Diabetes mellitus care home insulin use: without care home use Diabetes mellitus complication status: without complication Qualified Code(s): E11.9 - Type 2 diabetes mellitus without complications (3) Cystic mass of pancreas Current Visit: Yes Status: Acute Code(s): K86.2 - Cyst of pancreas (4) Alcohol abuse Current Visit: Yes Status: Acute Code(s): F10.10 - Alcohol abuse, uncomplicated (5) Hypokalemia Current Visit: Yes Status: Acute Code(s): E87.6 - Hypokalemia - Assessment / Plan Additional Assessment/Plan Details: NPO except ice chips replace electrolytes insulin for diabetes and possibly PO medications when diet advanced IV fluids, IV pain medications, antiemetics. examined patient with RN, Fanta, who helped translate today. Spoke with Dr. Love He would like to arrange an outpatient visit with patient to rescan in three weeks. It is unclear what surgical plan would be put into place at this point, but the patient may need eventual biopsy of head of pancreas, possible pseudocyst procedure?? [facility] [place] (Primary) [phone] View info [address] [facility] [address] [place] [id number]
[2018-07-10] MEDS: Insulin Glargine SoloStar Inj 100 UNIT/ML INSULN.PEN SUBCUT SCH (21:08)
[2018-07-11] MEDS: Sodium Chloride 0.9% 1,000 ML PRIMARY IV SCH (00:40)
[2018-07-11 05:19] LABS: BASOPHILS # (AUTO) 0.02 10*3/UL; BASOPHILS % (AUTO) 0.2 % (0-1); EOSINOPHILS # (AUTO) 0.06 10*3/UL; EOSINOPHILS % (AUTO) 0.5 % (0-8); Hematocrit [HCT] 43.9 % (42.0-52.0); Hemoglobin [HGB] 14.5 g/dL (14.0-18.0); LYMPHOCYTES # (AUTO) 1.85 10*3/uL; MEAN CORPUSCULAR VOLUME 103.1 FL (80-90); MEAN PLATELET VOLUME 10.8 FL (7.4-12.2); MONOCYTES # (AUTO) 1.24 10*3/UL (0.3-0.8); MONOCYTES % (AUTO) 11.3 % (5-15); NEUTROPHILS # (AUTO) 7.83 10*3/UL; RED BLOOD COUNT 4.26 10^6/uL (4.70-6.10)
[2018-07-11 05:26] LABS: PLATELET MORPHOLOGY COMMENT NORMAL MORPHOLOGY (NORM); RBC MORPHOLOGY COMMENT NORMAL MORPHOLOGY (NORM); WBC MORPHOLOGY COMMENT NORMAL MORPHOLOGY (NORM)
[2018-07-11 05:33] LABS: BLOOD UREA NITROGEN 7 mg/dL (7-22); LIPASE 216 IU/L (23-300); SERUM ALBUMIN 2.8 g/dL (3.5-4.8)
[2018-07-11] MEDS: Insulin Lispro Flexpen 300 UNIT/3 ML INSULN.PEN SUBCUT SCH ×4 (07:40→20:17)
[2018-07-11] MEDS: PANTOPRAZOLE IV 40 MG VIAL IVP SCH ×2 (08:23→20:40)
--- NOTE | 2018-07-11 08:26 | PDOC(PROG) ---
Date of Service: 07/11/18 Time of Service: 08:25 Interval History: Subjective He continue to have pain in his abdomen he is pointing to the left upper quadrant and to the chest. He said he has pain in his chest when he takes a deep breath. No pain in his back. His symptoms started 6 hours before he came into the hospital. He thinks he may have had a 50% improvement. His abdomen somewhat bloated today. He is passing gas. No vomiting Objective : Data - Labs CBC and BMP: 07/11/18 05:11 07/11/18 05:11 Objective : Exam - General General Appearance: No Acute Distress, Cooperative - Head Head Exam: Normal Inspection - Eye Eye Exam: Normal Appearance - ENT ENT Exam: Normal Exam - Neck Neck Exam: Normal Inspection - Respiratory Respiratory Exam: Clear to Auscultation - Bilaterally - Cardiovascular Cardiovascular Exam: Tachycardia - GI/Abdominal GI/Abdominal Exam: Normal Bowel Sounds, Soft, No Organomegaly Additional GI/Abdominal Exam Details: There is some distention mild. Some mild tenderness in the left upper quadrant. - Rectal Rectal Exam: Deferred - External Exam: Deferred - Extremities Extremities Exam: Normal Inspection - Back Back Exam: Normal Inspection - Neurological Neurological Exam: Alert, Oriented x 3, CN II-XII Intact, No Facial Droop, Speech Intact / Clear, Moves All Extremities Equally - Psychiatric Psychiatric Exam: Normal Affect - Integumentary Integumentary Exam: Normal Color Assessment and Plan - Patient Problems (1) Acute pancreatitis Current Visit: Yes Status: Acute Comment: His lipase is down. He made some improvement but still have pain in his abdomen. I think will give him a trial of clear liquid at noontime. Will switch him from a [employer] Dilaudid to boluses Dilaudid. will write for oral pain medication. Code(s): K85.90 - Acute pancreatitis without necrosis or infection, unspecified Qualifiers: Pancreatitis type: alcohol induced Acute pancreatitis complication: no infection or necrosis Qualified Code(s): K85.20 - Alcohol induced acute pancreatitis without necrosis or infection (2) Cystic mass of pancreas Current Visit: Yes Status: Acute Comment: This need follow-up later on as an outpatient with a surgeon in [place] if pain is controlled while he is here. If not I may end up calling the surgeon again tomorrow. Code(s): K86.2 - Cyst of pancreas (3) Alcohol abuse Current Visit: Yes Status: Acute Comment: He is on CIWA scale and on Ativan as needed. So far he did not need any. Code(s): F10.10 - Alcohol abuse, uncomplicated (4) Hypokalemia Current Visit: Yes Status: Acute Comment: We'll continue potassium replacement Code(s): E87.6 - Hypokalemia (5) DMII (diabetes mellitus, type 2) Current Visit: Yes Status: Acute Comment: Continue monitoring his blood sugar. Continue Lantus and sliding scale as needed. Code(s): E11.9 - Type 2 diabetes mellitus without complications Qualifiers: Diabetes mellitus terminal manager insulin use: without terminal manager use Diabetes mellitus complication status: without complication Qualified Code(s): E11.9 - Type 2 diabetes mellitus without complications
[2018-07-11] MEDS: HYDROmorphone 2 MG/1 ML IVP PRN ×5 (09:08→23:48)
--- NOTE | 2018-07-11 17:48 | DI ---
PA /LATERAL CHEST, 07/11/2018 5:06 PM : Clinical History: Shortness of breath. Tachypnea. Previous Exam: 07/09/2018. Soft Tissues: No acute soft tissue or bony abnormality. On both views the patient took a shallow insp iration. Heart: Normal heart for the shallow inspiratory effort. Lungs: Bilateral lower lobe atelectasis. Bilateral small effusions. Mediastinum: Normal mediastinum. Nodules: No pulmonary nodules. Reading: Bilateral lower lobe atelectasis with bilateral small pleural effusions.
[2018-07-11] MEDS: Insulin Glargine SoloStar Inj 100 UNIT/ML INSULN.PEN SUBCUT SCH (20:15)
[2018-07-12] MEDS: HYDROmorphone 2 MG/1 ML IVP PRN (04:45)
[2018-07-12 05:34] LABS: BASOPHILS # (AUTO) 0.02 10*3/UL; BASOPHILS % (AUTO) 0.2 % (0-1); EOSINOPHILS # (AUTO) 0.14 10*3/UL; EOSINOPHILS % (AUTO) 1.6 % (0-8); Hematocrit [HCT] 43.6 % (42.0-52.0); Hemoglobin [HGB] 14.2 g/dL (14.0-18.0); LYMPHOCYTES # (AUTO) 1.41 10*3/uL; MEAN CORPUSCULAR HGB CONC 32.6 g/dL (33-37); MEAN CORPUSCULAR VOLUME 101.4 FL (80-90); MEAN PLATELET VOLUME 10.6 FL (7.4-12.2); MONOCYTES # (AUTO) 0.93 10*3/UL (0.3-0.8); MONOCYTES % (AUTO) 10.7 % (5-15); NEUTROPHILS # (AUTO) 6.15 10*3/UL; NEUTROPHILS % (AUTO) 71.1 % (50-80)
[2018-07-12 05:37] LABS: PLATELET MORPHOLOGY COMMENT NORMAL MORPHOLOGY (NORM); RBC MORPHOLOGY COMMENT NORMAL MORPHOLOGY (NORM); WBC MORPHOLOGY COMMENT NORMAL MORPHOLOGY (NORM)
[2018-07-12 05:54] LABS: BLOOD UREA NITROGEN 4 mg/dL (7-22); LIPASE 283 IU/L (23-300); SERUM ALBUMIN 2.8 g/dL (3.5-4.8)
--- NOTE | 2018-07-12 07:55 | PDOC(PROG) ---
Date of Service: 07/12/18 Time of Service: 08:00 Interval History: Subjective Patient said that he feels better than yesterday. He is denying pain now. However he did receive a pain medication at 5:00 this morning. No nausea. He Is denying shortness of breath today. There is no pain in the chest when he takes a deep breath. Objective : Data - Labs CBC and BMP: 07/12/18 05:00 07/12/18 05:00 Objective : Exam - General General Appearance: No Acute Distress, Cooperative - Head Head Exam: Normal Inspection - Eye Eye Exam: Normal Appearance - ENT ENT Exam: Normal Exam - Neck Neck Exam: Normal Inspection - Respiratory Respiratory Exam: Clear to Auscultation - Bilaterally - Cardiovascular Cardiovascular Exam: RRR - GI/Abdominal GI/Abdominal Exam: Normal Bowel Sounds, Non Tender, Soft, No Organomegaly Additional GI/Abdominal Exam Details: Somewhat distended but nontender. Still soft. - Rectal Rectal Exam: Deferred - External Exam: Deferred - Extremities Extremities Exam: Normal Inspection - Back Back Exam: Normal Inspection - Neurological Neurological Exam: Alert, CN II-XII Intact, No Facial Droop, Speech Intact / Clear, Moves All Extremities Equally - Psychiatric Psychiatric Exam: Normal Affect Assessment and Plan - Patient Problems (1) Acute pancreatitis Current Visit: Yes Status: Acute Comment: He did not tolerate well the clear liquid yesterday. We'll try it again today. We'll see if he tolerate that. If not then we may end up speaking with the surgeon in [place] again. Code(s): K85.90 - Acute pancreatitis without necrosis or infection, unspecified Qualifiers: Pancreatitis type: alcohol induced Acute pancreatitis complication: no infection or necrosis Qualified Code(s): K85.20 - Alcohol induced acute pancreatitis without necrosis or infection (2) Cystic mass of pancreas Current Visit: Yes Status: Acute Comment: This need follow-up with the surgeon in [place]. All depends on his progress while here whether it will be as an outpatient or an inpatient. Code(s): K86.2 - Cyst of pancreas (3) Hypokalemia Current Visit: Yes Status: Acute Comment: Potassium still low will give him more potassium. Code(s): E87.6 - Hypokalemia (4) DMII (diabetes mellitus, type 2) Current Visit: Yes Status: Acute Comment: He is on sliding scale and Lantus continue. Code(s): E11.9 - Type 2 diabetes mellitus without complications Qualifiers: Diabetes mellitus longterm insulin use: without local intermodal truck driver use Diabetes mellitus complication status: without complication Qualified Code(s): E11.9 - Type 2 diabetes mellitus without complications
[2018-07-12] MEDS: Insulin Lispro Flexpen 300 UNIT/3 ML INSULN.PEN SUBCUT SCH ×4 (08:14→20:12)
[2018-07-12] MEDS ORDERED: Sodium Chloride 0.9% 250 ML ONE (09:51)
[2018-07-12] MEDS: Potassium Chloride 20mEq Packet PO SCH ×2 (09:54→20:12)
[2018-07-12] MEDS: PANTOPRAZOLE IV 40 MG VIAL IVP SCH ×2 (09:54→20:11)
[2018-07-12] MEDS: oxyCODONE/APAP 7.5/325 Tab 1 TAB TAB PO PRN ×2 (14:21→20:12)
[2018-07-12] MEDS: Insulin Glargine SoloStar Inj 100 UNIT/ML INSULN.PEN SUBCUT SCH (20:12)
[2018-07-13] MEDS: oxyCODONE/APAP 7.5/325 Tab 1 TAB TAB PO PRN (03:00)
[2018-07-13] MEDS: HYDROmorphone 2 MG/1 ML IVP PRN ×4 (03:30→11:04)
[2018-07-13] MEDS ORDERED: HYDROmorphone 2 MG/1 ML IVP ONE (04:18)
[2018-07-13 05:07] VITALS: RESP 18
[2018-07-13 05:24] LABS: BASOPHILS # (AUTO) 0.02 10*3/UL; BASOPHILS % (AUTO) 0.2 % (0-1); EOSINOPHILS # (AUTO) 0.12 10*3/UL; Hematocrit [HCT] 47.1 % (42.0-52.0); Hemoglobin [HGB] 15.6 g/dL (14.0-18.0); LYMPHOCYTES # (AUTO) 1.83 10*3/uL; MEAN CORPUSCULAR HEMOGLOBIN 33.1 PG (27-31); MEAN CORPUSCULAR HGB CONC 33.1 g/dL (33-37); MEAN CORPUSCULAR VOLUME 99.8 FL (80-90); MEAN PLATELET VOLUME 10.9 FL (7.4-12.2); MONOCYTES # (AUTO) 1.41 10*3/UL (0.3-0.8); MONOCYTES % (AUTO) 12.2 % (5-15); NEUTROPHILS # (AUTO) 8.18 10*3/UL; NEUTROPHILS % (AUTO) 70.7 % (50-80); RED BLOOD COUNT 4.72 10^6/uL (4.70-6.10)
[2018-07-13 05:30] LABS: BLOOD UREA NITROGEN 4 mg/dL (7-22); BUN/CREATININE RATIO 13.33 (6-20); SERUM ALBUMIN 3.3 g/dL (3.5-4.8)
[2018-07-13 06:45] LABS: PLATELET MORPHOLOGY COMMENT NORMAL MORPHOLOGY (NORM); RBC MORPHOLOGY COMMENT NORMAL MORPHOLOGY (NORM); WBC MORPHOLOGY COMMENT NORMAL MORPHOLOGY (NORM)
--- NOTE | 2018-07-13 07:31 | PDOC(PROG) ---
Date of Service: 07/13/18 Time of Service: 07:30 Interval History: Subjective Patient said that he started to have recurrence of the pain at 3:00 this morning. Pain is sever he received oral pain medication and IV and still in pain. He rates his pain 8-9 out of 10. Pain felt in the left upper quadrant and also the left upper chest. No shortness of breath no nausea. Yesterday we did put him on clear liquid he tolerated clear liquid there was no pain did get dinner some mash and a piece of salmon on and was okay until this morning. Objective : Data - Labs CBC and BMP: 07/13/18 04:40 07/13/18 04:18 Objective : Exam - General General Appearance: No Acute Distress, Cooperative - Head Head Exam: Normal Inspection - Eye Eye Exam: Normal Appearance - ENT ENT Exam: Normal Exam - Neck Neck Exam: Normal Inspection - Respiratory Respiratory Exam: Clear to Auscultation - Bilaterally - Cardiovascular Cardiovascular Exam: RRR - GI/Abdominal Additional GI/Abdominal Exam Details: His abdomen is firm there is some tenderness in the left upper quadrant. - Rectal Rectal Exam: Deferred - External Exam: Deferred - Extremities Extremities Exam: Normal Inspection - Back Back Exam: Normal Inspection - Neurological Neurological Exam: Alert, CN II-XII Intact, No Facial Droop, Speech Intact / Clear, Moves All Extremities Equally - Psychiatric Psychiatric Exam: Normal Affect Assessment and Plan - Patient Problems (1) Acute pancreatitis Current Visit: Yes Status: Acute Comment: He is worse again I will do a CAT scan of his abdomen will speak with the surgeon in [place] and see what's their suggestion. Code(s): K85.90 - Acute pancreatitis without necrosis or infection, unspecified Qualifiers: Pancreatitis type: alcohol induced Acute pancreatitis complication: no infection or necrosis Qualified Code(s): K85.20 - Alcohol induced acute pancreatitis without necrosis or infection (2) Cystic mass of pancreas Current Visit: Yes Status: Acute Comment: will speak with the surgeon in [place] after repeating the CT. Code(s): K86.2 - Cyst of pancreas (3) Hypokalemia Current Visit: Yes Status: Acute Comment: It's better but the still low will give him more potassium. Code(s): E87.6 - Hypokalemia (4) DMII (diabetes mellitus, type 2) Current Visit: Yes Status: Acute Comment: Continue sliding scale. Code(s): E11.9 - Type 2 diabetes mellitus without complications Qualifiers: Diabetes mellitus care home insulin use: without tilt wall supervisor use Diabetes mellitus complication status: without complication Qualified Code(s): E11.9 - Type 2 diabetes mellitus without complications
[2018-07-13 07:47] VITALS: BP 121/83; TEMP 97.2
[2018-07-13] MEDS: Insulin Lispro Flexpen 300 UNIT/3 ML INSULN.PEN SUBCUT SCH (08:23)
[2018-07-13] MEDS: PANTOPRAZOLE IV 40 MG VIAL IVP SCH (09:14)
--- NOTE | 2018-07-13 09:32 | DI ---
CT Abdomen/Pelvis W Contrast,07/13/2018 8:22 AM: Clinical History: Worsening abdominal pain and pancreatitis Previous Exam: July 09, 2018 Findings: Multiple helically acquired CT images are obtained through the abdomen and pelvis following the intra venous administration of contrast (75 cc of Isovue 300). There is new bilateral pleural effusions and subsegmental atelectasis in the lung bases. The spleen is unremarkable. There was fluid along the greater curvature of the stomach, which today h as an enhancing rim surrounding the fluid collection. This is worrisome for an abscess. There is also a hypodense region of the gastric wall which extends to the outer portion of the wall, and measures 1.7 x 1.6 cm and extends to the serosal surface of the stomach. There is increasing fluid within the abdomen. There is a fat-containing umbilical hernia noted. The liver demonstrates some mild irregularity likely representing underlying cirrhosis. 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 The gallbladder appears grossly normal. The kidneys and adrenals appear normal as well. There is a stable large cystic mass involving the body of the pancreas measuring 10 cm in long axis. This is essentially unchanged from the prior exam. The appendix is normal. Large and small bowel loop s are unremarkable. Impression: 1. Increasing amount of ascites within the abdomen. 2. Fluid collection along the greater curvature of the stomach with new enhancing wall and potential extension into the greater curvature of the stomach. This measures 13 mm x 3 mm along the greater cur vature. 3. Stable cystic mass within the body of the pancreas with an enhancing wall. This most likely repres ents a pseudocyst however, biopsy would be needed for
[2018-07-13] MEDS: Potassium Chloride 20mEq Packet PO SCH (10:05)
--- NOTE | 2018-07-13 10:05 | DCSUMMARY ---
Hospitalization Summary Admit Date: 07/09/2018 Discharge Date: 07/13/18 Hospital Course: Transfer diagnoses 1. Acute pancreatitis 2. 6 x 10.4 x 7.1 cm cystic mass with a rim-enhancing wall of the pancreatic body and tail likely pseudocyst. Cannot exclude neoplasm. 3. Ascites 4. Fluid collection along the greater curvature of the stomach with no enhancing wall and potential extension into the greater curvature of the stomach. This measures 13 mm x 3 mm along the greater curvature. This is worrisome for an abscess. 5. There is also hypodense lesion of the gastric wall which extends to the outer portion of the wall and measures 1.7 x 1.6 cm and extends to the serosal surface of the stomach. 6. The liver demonstrates some mild irregularity likely representing underlying cirrhosis. 7. There are multiple gastric and esophageal venous varices. Hospital course This is a 48 years old male with no significant past medical history who came into the hospital because of sudden onset of epigastric pain that started the day he presented. The patient admitted to drinking 6 beers a day on most days. He did have nausea and vomiting. He was given pain medication. He had a CT of the abdomen which showed pancreatitis and a pseudo-cyst. His lipase was elevated more than 1000. The size of the pseudocyst was about 6 x 10.4 x 7.1 cm. The case was discussed with the Dr. Parmar in [place] and he recommended admission locally to treat the pancreatitis and follow-up with him as an outpatient. Patient was admitted to the hospital by Dr. Polo please see his note. Patient was put on nothing by mouth pain medication and fluid. He was requiring BEZEL CUTTER Dilaudid then this was switched to IV boluses when I saw him on the as he was feeling better. We tried some clear liquid that day he didn' t tolerate it so put him back on ice chips. On the he was feeling better than the day before he wanted to try a clear liquid we tried that at noon time he seems to be tolerating that. He wanted to advance his diet more so we advanced him and had some mashed potato and salmon he did tolerate that. However this morning at 3:00 he started to have worsening pain in the left upper quadrant and left upper chest. He was given oral pain medication and IV pain medication but continued to complain from it. His white count was normalized yesterday today's white count 11,000. I did repeat his CT of the abdomen which showed fluid collection along the greater curvature of the stomach with ring-enhancing wall and potential extension to the greater curvature of the stomach. This is worrisome for an abscess. There is also hypodense lesion of the gastric wall which extend to the outer portion of the wall and measures 1.7 x 1.6 cm extends into the serosal surface of the stomach. Because of the finding I did speak with the surgeon surety bond agent for Dr. Maria Esther Aguilar and she accepted patient for transfer patient will be transferred at one point today once there is a bed. Laboratory Results 07/13/18 07/13/18 07/13/18 Range/Units 04:18 04:18 04:40 WBC 11.57 H (4.8-10.8) 10^3/uL RBC 4.72 (4.70-6.10) 10^6/uL Hgb 15.6 (14.0-18.0) g/dL Hct 47.1 (42.0-52.0) % MCV 99.8 H (80-90) FL MCH 33.1 H (27-31) PG MCHC 33.1 (33-37) g/dL RDW Std Deviation 42.7 (39-50) fL RDW Coeff of Haroldo 11.8 (11.5-14.5) % Plt Count 218 (140-350) 10*3/uL MPV 10.9 (7.4-12.2) FL Immature Gran % (Auto) 0.1 (0-5) % Neut % (Auto) 70.7 (50-80) % Lymph % (Auto) 15.8 (10-50) % [place] % (Auto) 12.2 (5-15) % Eos % (Auto) 1.0 (0-8) % Baso % (Auto) 0.2 (0-1) % Immature Gran # (Auto) 0.01 10*3/UL Neut # (Auto) 8.18 10*3/UL Lymph # (Auto) 1.83 10*3/uL [place] # (Auto) 1.41 H (0.3-0.8) 10*3/UL Eos # (Auto) 0.12 10*3/UL Baso # (Auto) 0.02 10*3/UL WBC Morphology Comment Normal morphology (NORM) Plt Morphology Comment Normal morphology (NORM) RBC Morph Comment Normal morphology (NORM) Sodium 136 (135-145) meq/L Potassium 3.4 L (3.8-5.2) meq/L Chloride 100 (98-112) meq/L Carbon Dioxide 23 (23-33) meq/L Anion Gap 13 (5-20) BUN 4 L (7-22) mg/dL Creatinine 0.3 L (0.70-1.50) mg/dL Estimated GFR > 60 (>60 ml/min/1.73m(2)) BUN/Creatinine Ratio 13.33 (6-20) Glucose 160 H (78-110) mg/dL Calculated Osmolality 281.0 (267-292) mOsm/kg Calcium 8.2 L (8.7-10.7) mg/dL Magnesium 1.8 (1.6-2.4) mg/dL Total Bilirubin 1.8 H (0.3-1.2) mg/dL AST 29 (21-57) IU/L ALT 36 (21-72) IU/L Alkaline Phosphatase 124 (38-126) IU/L Total Protein 6.9 (6.1-8.0) g/dL Albumin 3.3 L (3.5-4.8) g/dL Globulin 3.6 (2.50-4.10) g/dL Albumin/Globulin Ratio 0.90 L (1.3-2.0) mg/g Discharge instruction Diet nothing by mouth except ice chips Medications Active Medications Acetaminophen (Tylenol) 650 mg PO Q6H PRN PRN Reason: Pain or Fever Calcium Carbonate (Tums) 1 - 2 tab PO Q6H PRN PRN Reason: Heartburn Dextrose (Dextrose 50% Inj) 30 - 40 ml IVP Q15M PRN PRN Reason: BG < 70 unable to take oral Docusate Sodium (Colace) 100 mg PO BID PRN PRN Reason: Constipation Glucagon (Glucagen) 1 mg IM ONCE PRN PRN Reason: BG < 70 NPO & NO IV Glucose (Insta-Glucose Gel) 15 - 20 gm PO Q15M PRN PRN Reason: BG < 70 Hydromorphone HCl (Dilaudid Inj) 1 - 2 mg IVP Q3H PRN PRN Reason: Pain Last Admin: 07/13/18 09:14 Dose: 2 mg Sodium Chloride (Normal Saline 0.9%) 25 mls @ 200 mls/hr IV .Post Infusion PRN PRN Reason: No Primary IV for Flush ONLY Potassium Chloride/Sodium Chloride (Pot Chl 20meq + Ns) 1,000 mls @ 125 mls/hr PRIMARY IV .Q8H [facility] Last Admin: 07/13/18 03:31 Dose: 60 mls/hr Insulin Glargine (Lantus Solostar Inj) 5 unit SUBCUT BEDTIME [facility] Last Admin: 07/12/18 20:12 Dose: 5 unit Insulin Human Lispro (Humalog Flexpen Inj) 0 - 14 unit SUBCUT AC HS [facility]; Protocol Last Admin: 07/13/18 08:23 Dose: Not Given Lidocaine HCl (Lidocaine Buffered Inj) 0.5 ml SUBD ONCE PRN PRN Reason: IV Starts Lorazepam (Ativan Inj (Etoh Withdrawal)) 1 - 4 mg IVP .PER CIWA-AR PRN PRN Reason: CIWA-Ar score >8 Last Admin: 07/10/18 07:50 Dose: 1 mg Naloxone HCl (Narcan Inj) 0.1 mg IVP .PER BEZEL CUTTER ORDERS PRN PRN Reason: Respiratory Depression Non-Formulary Medication (Insulin Sliding Scale Protocol) 1 each SUBCUT .Per Protocol PRN PRN Reason: Per Insulin Protocol Ondansetron HCl (Zofran Inj) 4 mg IVP Q4H PRN PRN Reason: NAUSEA / VOMITING Last Admin: 07/09/18 17:54 Dose: 4 mg Oxycodone/Acetaminophen (Percocet 7.5/325 Tab) 1 tab PO Q6H PRN PRN Reason: Pain Last Admin: 07/13/18 03:00 Dose: 1 tab Pantoprazole Sodium (Protonix Inj) 40 mg IVP BID [facility] Last Admin: 07/13/18 09:14 Dose: 40 mg Potassium Chloride (K-Lenore Packet) 20 meq PO BID [facility] Last Admin: 07/13/18 10:05 Dose: Not Given [facility] post discharge. Exam - Vitals Vital Signs: Vital Signs Temperature 97.2 F Temperature Source Temporal Artery Scan Pulse Rate [Apical] 96 Pulse Rate [Pulse Oximeter] 111 Pulse Rate [Telemetry] 107 Pulse Rate 106 Respiratory Rate 18 Blood Pressure [Right Arm] 121/83 Blood Pressure 135/89 Pulse Ox 95 Oxygen Flow Rate 2 Oxygen Delivery Method Nasal Cannula Height 5 ft 9 in Weight 178 lb Patient Problems - Patient Problem List (1) Acute pancreatitis Current Visit: Yes Status: Acute Code(s): K85.90 - Acute pancreatitis without necrosis or infection, unspecified Qualifiers: Pancreatitis type: alcohol induced Acute pancreatitis complication: no infection or necrosis Qualified Code(s): K85.20 - Alcohol induced acute pancreatitis without necrosis or infection Category: Medical (2) Cystic mass of pancreas Current Visit: Yes Status: Acute Code(s): K86.2 - Cyst of pancreas Category: Medical (3) Hypokalemia Current Visit: Yes Status: Acute Code(s): E87.6 - Hypokalemia Category: Medical (4) DMII (diabetes mellitus, type 2) Current Visit: Yes Status: Acute Code(s): E11.9 - Type 2 diabetes mellitus without complications Qualifiers: Diabetes mellitus vermin exterminator insulin use: without fpc use Diabetes mellitus complication status: without complication Qualified Code(s): E11.9 - Type 2 diabetes mellitus without complications Category: Medical
[2018-07-13 11:14] VITALS: O2SAT 94
== END 2018-07-13 11:15 | DRG 439 ==
LOC: ER 12:20 → MED/SURG 17:18
PROVIDERS: ADMIT Family Medicine; ATTEND Family Medicine